=== PATIENT | female | born 1940 | race Caucasian/White ===

== ENCOUNTER 2020-10-28 18:54 | Emergency (ER) | payer MEDICARE ==
[~2020-10-28] VITALS: Ht 149.9 cm; Wt 47.0 kg
[2020-10-28 19:52] LABS: URINE BILIRUBIN - DIPSTICK NEGATIVE (NEGATIVE); URINE BLOOD DIPSTICK TRACE-INTACT (NEGATIVE); URINE COLOR YELLOW; URINE GLUCOSE - DIPSTICK NEGATIVE (NEGATIVE); URINE KETONE NEGATIVE (NEGATIVE); URINE NITRITE - DIPSTICK NEGATIVE (Negative); URINE PROTEIN - DIPSTICK TRACE mg/dL (NEG-TRACE); URINE UROBILINOGEN - DIPSTICK 0.2 E.U./dL (0.2)
[2020-10-28 19:57] LABS: URINE LEUK ESTERASE MODERATE (NEGATIVE)
[2020-10-28 19:58] LABS: URINE BACTERIA MODERATE hpf; URINE SQUAMOUS EPITHELIAL CELL FEW EPI/hpf (0-FEW)
[2020-10-28 20:02] LABS: HEMOGLOBIN 13.5 g/dl (12.0-16.0); IMMATURE GRANULOCYTES 0.3 % (0.0-5.0); MEAN CELL VOLUME 84.5 fL CALC (80.0-100.0); MEAN CORPUSCULAR HGB 27.8 pG CALC (26.0-32.0); MEAN CORPUSCULAR HGB CONC 32.9 g/dL CAL (32.0-36.0); NEUT# 4.61 thou/uL (2.00-7.15); RED BLOOD COUNT 4.85 mill/uL (4.20-5.60); RED CELL DISTRI WIDTH 14.7 % (11.5-15.5)
[2020-10-28 20:09] LABS: ALBUMIN 4.6 g/dL (3.2-5.0); ALKALINE PHOSPHATASE 60 u/l (38-126); ANION GAP 13 (6-22 (CALC)); BILIRUBIN, TOTAL 0.9 mg/dL (0.0-1.4); BUN 26 mg/dL (8-23); BUN/CREATININE RATIO 30 (12-20 (CALC)); CARBON DIOXIDE 29 mmol/l (22-30); CHLORIDE 89 mmol/l (95-108); CREATININE 0.8 mg/dL (0.5-1.0); GFR > 60 ML/MIN (>=60 (CALC)); GFR FOR AFR.AMER. > 60 ML/MIN (>=60 (CALC)); POTASSIUM 3.1 mmol/l (3.5-5.1); SGOT/AST 44 u/l (9-36); SODIUM 128 mmol/l (137-146); TOTAL PROTEIN 7.7 g/dL (6.3-8.2)
[2020-10-28 20:20] LABS: MYOGLOBIN 112 ng/mL (0 - 62)
[2020-10-28 21:46] VITALS: BP 109/53
[2020-10-29] MEDS ORDERED: CIPROFLOXACN500 MG PO (04:39)
== END 2020-10-28 21:50 | disposition home or self-care (01) ==
LOC: ED 18:54
PROVIDERS: Emergency Medicine
DX: I10 Essential (primary) hypertension (principal); N39.0 Urinary tract infection, site not specified; B96.20 Unspecified Escherichia coli [E. coli] as the cause of diseases classified elsewhere; E87.1 Hypo-osmolality and hyponatremia; E87.6 Hypokalemia; I35.0 Nonrheumatic aortic (valve) stenosis

== ENCOUNTER 2021-04-04 10:52 | Observation (INO) | payer MEDICARE ==
[~2021-04-04] VITALS: Ht 152.4 cm; Wt 49.0 kg
[~2021-04-04 10:52] MED LIST: CIPROFLOXACN500 MG PO
[2021-04-04 11:54] LABS: HEMATOCRIT 41.1 % (37.0-47.0); HEMOGLOBIN 14.3 g/dl (12.0-16.0); IMMATURE GRANULOCYTES 0.4 % (0.0-5.0); MEAN CELL VOLUME 80.7 fL CALC (80.0-100.0); MEAN CORPUSCULAR HGB 28.1 pG CALC (26.0-32.0); MEAN CORPUSCULAR HGB CONC 34.8 g/dL CAL (32.0-36.0); NEUT# 7.94 thou/uL (2.00-7.15); RED BLOOD COUNT 5.09 mill/uL (4.20-5.60); RED CELL DISTRI WIDTH 12.9 % (11.5-15.5)
[2021-04-04 12:14] LABS: INTERNATIONAL NORMALIZED RATIO 1.1 RATIO (0.7-1.3)
[2021-04-04 12:15] LABS: ALBUMIN 4.2 g/dL (3.2-5.0); ALKALINE PHOSPHATASE 55 u/l (38-126); AMYLASE 109 u/l (30-110); BILIRUBIN, TOTAL 0.8 mg/dL (0.0-1.4); BUN 22 mg/dL (8-23); BUN/CREATININE RATIO 27 (12-20 (CALC)); CARBON DIOXIDE 28 mmol/l (22-30); CREATININE 0.8 mg/dL (0.5-1.0); ETHYL ALCOHOL 0 mg/dl (0-30); GFR > 60 ML/MIN (>=60 (CALC)); GFR FOR AFR.AMER. > 60 ML/MIN (>=60 (CALC)); LIPASE 242 u/l (23-300); MAGNESIUM 1.2 mg/dL (1.6-2.3); POTASSIUM 2.8 mmol/l (3.5-5.1); SGOT/AST 45 u/l (9-36)
[2021-04-04 12:18] LABS: ANION GAP 13 (6-22 (CALC)); CHLORIDE 78 mmol/l (95-108); SODIUM 116 mmol/l (137-146)
[2021-04-04 13:26] LABS: URINE BILIRUBIN - DIPSTICK NEGATIVE (NEGATIVE); URINE BLOOD DIPSTICK LARGE (NEGATIVE); URINE COLOR YELLOW; URINE GLUCOSE - DIPSTICK NEGATIVE (NEGATIVE); URINE KETONE NEGATIVE (NEGATIVE); URINE LEUK ESTERASE LARGE (NEGATIVE); URINE NITRITE - DIPSTICK NEGATIVE (Negative); URINE PROTEIN - DIPSTICK 100 mg/dL (NEG-TRACE); URINE UROBILINOGEN - DIPSTICK 0.2 E.U./dL (0.2)
[2021-04-04 13:30] LABS: URINE RBC 25-50 RBC/hpf (0-5)
[2021-04-04 13:31] LABS: URINE SQUAMOUS EPITHELIAL CELL MODERATE EPI/hpf (0-FEW); URINE WBC >100 WBC/hpf (0-5)
[2021-04-04] MEDS ORDERED: SYNTHROID112 MCG PO (14:29)
[2021-04-04] MEDS ORDERED: SIMVASTATIN80 MG PO (14:30)
[2021-04-04] MEDS ORDERED: METOPROL TAR25 MG PO (14:30)
[2021-04-04] MEDS ORDERED: PRAVASTATIN10 MG PO (14:31)
[2021-04-04] MEDS ORDERED: HYDROCHLOROT12.5 MG PO (14:32)
[2021-04-04] MEDS ORDERED: HYDRALAZINE10 M2 PO (14:32)
[2021-04-04 17:39] LABS: BUN 18 mg/dL (8-23); BUN/CREATININE RATIO 22 (12-20 (CALC)); CARBON DIOXIDE 28 mmol/l (22-30); CHLORIDE 86 mmol/l (95-108); CREATININE 0.8 mg/dL (0.5-1.0); GFR > 60 ML/MIN (>=60 (CALC)); GFR FOR AFR.AMER. > 60 ML/MIN (>=60 (CALC)); POTASSIUM 2.8 mmol/l (3.5-5.1)
[2021-04-04 17:40] LABS: ANION GAP 12 (6-22 (CALC)); SODIUM 123 mmol/l (137-146)
[2021-04-04 18:54] VITALS: BP 122/70
[2021-04-04 23:38] VITALS: BP 141/65
[2021-04-05 00:15] VITALS: BP 145/68
[2021-04-05 03:41] VITALS: BP 162/73
[2021-04-05 05:42] LABS: HEMATOCRIT 38.6 % (37.0-47.0); HEMOGLOBIN 13.3 g/dl (12.0-16.0); IMMATURE GRANULOCYTES 0.2 % (0.0-5.0); MEAN CELL VOLUME 82.3 fL CALC (80.0-100.0); MEAN CORPUSCULAR HGB 28.4 pG CALC (26.0-32.0); MEAN CORPUSCULAR HGB CONC 34.5 g/dL CAL (32.0-36.0); NEUT# 6.3 thou/uL (2.00-7.15); RED BLOOD COUNT 4.69 mill/uL (4.20-5.60); RED CELL DISTRI WIDTH 13.2 % (11.5-15.5)
[2021-04-05 06:10] LABS: ALBUMIN 3.6 g/dL (3.2-5.0); ALKALINE PHOSPHATASE 48 u/l (38-126); ANION GAP 12 (6-22 (CALC)); BILIRUBIN, TOTAL 0.6 mg/dL (0.0-1.4); BUN 19 mg/dL (8-23); BUN/CREATININE RATIO 26 (12-20 (CALC)); CARBON DIOXIDE 25 mmol/l (22-30); CHLORIDE 95 mmol/l (95-108); CREATININE 0.7 mg/dL (0.5-1.0); GFR > 60 ML/MIN (>=60 (CALC)); GFR FOR AFR.AMER. > 60 ML/MIN (>=60 (CALC)); SGOT/AST 39 u/l (9-36); SODIUM 129 mmol/l (137-146); TOTAL PROTEIN 6.2 g/dL (6.3-8.2)
[2021-04-05 07:16] VITALS: BP 149/77
[2021-04-05 10:37] VITALS: BP 153/79
[2021-04-05 15:14] VITALS: BP 159/99
[2021-04-05 18:08] LABS: ANION GAP 13 (6-22 (CALC)); BUN 16 mg/dL (8-23); BUN/CREATININE RATIO 20 (12-20 (CALC)); CARBON DIOXIDE 24 mmol/l (22-30); CHLORIDE 96 mmol/l (95-108); CREATININE 0.8 mg/dL (0.5-1.0); GFR > 60 ML/MIN (>=60 (CALC)); GFR FOR AFR.AMER. > 60 ML/MIN (>=60 (CALC)); POTASSIUM 3.2 mmol/l (3.5-5.1); SODIUM 130 mmol/l (137-146)
[2021-04-05 19:30] VITALS: BP 150/70
[2021-04-06] VITALS: BP 145/68
[2021-04-06 05:00] VITALS: BP 150/75
[2021-04-06 05:57] LABS: HEMATOCRIT 38.9 % (37.0-47.0); HEMOGLOBIN 13.3 g/dl (12.0-16.0); MEAN CELL VOLUME 82.2 fL CALC (80.0-100.0); MEAN CORPUSCULAR HGB 28.1 pG CALC (26.0-32.0); MEAN CORPUSCULAR HGB CONC 34.2 g/dL CAL (32.0-36.0); RED BLOOD COUNT 4.73 mill/uL (4.20-5.60); RED CELL DISTRI WIDTH 13.6 % (11.5-15.5)
[2021-04-06 06:05] LABS: ALBUMIN 3.4 g/dL (3.2-5.0); ALKALINE PHOSPHATASE 49 u/l (38-126); ANION GAP 11 (6-22 (CALC)); BILIRUBIN, TOTAL 0.6 mg/dL (0.0-1.4); BUN 14 mg/dL (8-23); BUN/CREATININE RATIO 25 (12-20 (CALC)); CARBON DIOXIDE 25 mmol/l (22-30); CHLORIDE 97 mmol/l (95-108); CREATININE 0.6 mg/dL (0.5-1.0); GFR > 60 ML/MIN (>=60 (CALC)); GFR FOR AFR.AMER. > 60 ML/MIN (>=60 (CALC)); SGOT/AST 35 u/l (9-36); SODIUM 130 mmol/l (137-146); TOTAL PROTEIN 5.9 g/dL (6.3-8.2)
[2021-04-06 07:03] VITALS: BP 138/87
[2021-04-06 11:19] VITALS: BP 153/82
[2021-04-06 15:34] VITALS: BP 144/84
[2021-04-06] MEDS ORDERED: LEVAQUIN750 M1 PO (16:15)
== END 2021-04-06 17:20 | disposition home or self-care (01) ==
LOC: ED 10:52 → ED-I 13:33 → ED 13:53 → MS2 13:54
PROVIDERS: Nurse Practitioner Family; ADMIT Internal Medicine; ATTEND Internal Medicine
DX: E87.1 Hypo-osmolality and hyponatremia (principal); E87.6 Hypokalemia; E83.42 Hypomagnesemia; N39.0 Urinary tract infection, site not specified; E87.8 Other disorders of electrolyte and fluid balance, not elsewhere classified; K56.41 Fecal impaction; I10 Essential (primary) hypertension; E03.9 Hypothyroidism, unspecified; N28.1 Cyst of kidney, acquired; I35.0 Nonrheumatic aortic (valve) stenosis; B96.20 Unspecified Escherichia coli [E. coli] as the cause of diseases classified elsewhere; Z20.822 Contact with and (suspected) exposure to COVID-19
CPT/HCPCS: G0378; J1650; J1956; J3475; Q9967

== ENCOUNTER 2024-03-07 19:55 | Emergency (ER) | payer MEDICARE ==
[~2024-03-07] VITALS: Ht 152.4 cm; Wt 50.0 kg
[~2024-03-07 19:55] MED LIST changes: +HYDRALAZINE10 M2 PO; +HYDROCHLOROT12.5 MG PO; +LEVAQUIN750 M1 PO; +METOPROL TAR25 MG PO; +PRAVASTATIN10 MG PO; +SIMVASTATIN80 MG PO; +SYNTHROID112 MCG PO
[2024-03-07 21:07] VITALS: BP 237/112
[2024-03-07 21:10] VITALS: BP 236/117
[2024-03-07 21:15] VITALS: BP 244/122
[2024-03-07] MEDS ORDERED: Diph, Acellular Pertussis, Tet 0.5 ML/VIAL (Tdap) SDV IM ONE (21:15)
[2024-03-07 21:31] VITALS: BP 215/110
[2024-03-07 21:46] VITALS: BP 185/90
[2024-03-07 21:54] VITALS: BP 185/90
== END 2024-03-07 21:54 | disposition home or self-care (01) ==
LOC: ED 19:55
PROC: 0HQ0XZZ Repair Scalp Skin, External Approach (ICD-10-PCS; principal; 2024-03-07)
DX: S01.01XA Laceration without foreign body of scalp, initial encounter (principal); I10 Essential (primary) hypertension; W22.09XA Striking against other stationary object, initial encounter; Y92.009 Unspecified place in unspecified non-institutional (private) residence as the place of occurrence of the external cause

== ENCOUNTER 2024-03-14 13:32 | Emergency (ER) | payer MEDICARE ==
[~2024-03-14] VITALS: Ht 152.4 cm; Wt 43.5 kg
[2024-03-14 13:38] VITALS: BP 188/94
[2024-03-14 13:45] VITALS: BP 153/93
[2024-03-14 13:53] VITALS: BP 153/93
== END 2024-03-14 14:02 | disposition home or self-care (01) ==
LOC: ED 13:32
DX: S01.01XD Laceration without foreign body of scalp, subsequent encounter (principal); X58.XXXD Exposure to other specified factors, subsequent encounter